=== PATIENT | female | born 1975 | race African-American/Black ===

== ENCOUNTER 2025-01-27 04:37 | Emergency (ER) | payer MEDICAID ==
[~2025-01-27] VITALS: Ht 149.9 cm; Wt 95.0 kg
[2025-01-27 04:57] VITALS: O2SAT 99
[2025-01-27 05:27] LABS: BASOPHILS % 0.2 % (0.0-2.0); EOSINOPHILS % 1.8 % (0.0-5.0); HEMATOCRIT. 39.1 % (36.0-48.0); HEMOGLOBIN. 13.0 g/dL (12.0-16.0); LYMPHOCYTES % 34.0 % (20.0-50.0); MEAN PLATELET VOLUME 9.1 fl (7.4-10.4); MONOCYTES % 8.8 % (2.0-8.0); NEUTROPHILS % 55.2 % (40.0-76.0); PLATELET 254 x1000/uL (130-400); RED BLOOD CELL COUNT 4.58 mill/uL (4.2-5.4); RED CELL DISTRIBUTION WIDTH 14.4 % (11.6-14.6)
[2025-01-27 05:43] LABS: CREATININE 1.4 mg/dL (0.6-1.0); UREA NITROGEN BLOOD 14 mg/dL (9-23)
[2025-01-27 05:44] LABS: TROPONIN I HIGH SENSITIVITY 15 ng/L (3.0-34)
[2025-01-27] MEDS: HYDRALAZINE 20MG/ML VIAL IV ONE (05:48)
[2025-01-27] MEDS ORDERED: DICYCLOMINE 10 MG/5 ML ORAL SYR PO STA (06:40)
[2025-01-27] MEDS: ONDANSETRON 4MG ODT PO STA (07:23)
[2025-01-27] MEDS: MAGNESIUM/ALUMINUM HYDROXIDE/SIMETHICONE 30ML UDC PO STA (07:23)
[2025-01-27 08:31] VITALS: BP 161/89; PULSE 89; RESP 15; TEMP 36.8; O2SAT 99
== END 2025-01-27 09:14 | disposition left against medical advice (07) ==
LOC: ER 05:12 → CANBEDREQ 07:33 → ER 09:14
DX: I16.0 Hypertensive urgency (principal); I10 Essential (primary) hypertension; F12.90 Cannabis use, unspecified, uncomplicated
CPT/HCPCS: 80048; 85025; 84484; 36415; 71045; 93005; 96374; 99285; Q0162; J0360; Z7610; A6449